=== PATIENT | female | born 1970 | race Two or more races ===

== ENCOUNTER 2016-12-19 11:39 | Emergency (ER) | payer MEDICAID ==
[~2016-12-19] VITALS: Ht 162.6 cm; Wt 90.7 kg
[2016-12-19 14:33] VITALS: BP 116/84
== END 2016-12-19 15:06 | disposition home or self-care (01) ==
LOC: ER 12:35
DX: N93.9 Abnormal uterine and vaginal bleeding, unspecified (principal); Z00.00 Encounter for general adult medical examination without abnormal findings